=== PATIENT | male | born 1950 | race African-American/Black ===

== ENCOUNTER 2017-05-16 08:48 | Observation (INO) | payer MEDICAID ==
[2017-05-16] MEDS ORDERED: ceFAZolin 2 GM/DEXTROSE 100 ML IV ONE (08:57)
[2017-05-16] MEDS ORDERED: BUPIVACAINE 0.5% 30 ML SDV ONE (09:39)
[2017-05-16] MEDS ORDERED: BACITRACIN 50,000 UNITS/10 ML SYR IRR ONE (09:40)
[2017-05-16] MEDS ORDERED: POLYMYXIN B SULFATE 500,000 UNIT/10 ML SYR IRR ONE (09:40)
[2017-05-16] MEDS ORDERED: LR 1,000 ML IV ONE (10:10)
[2017-05-16 10:38] LABS: HEMATOCRIT 43.2 % (40.0-51.0); HEMOGLOBIN 14.7 g/dL (13.7-17.5)
--- NOTE | 2017-05-16 10:59 | PDANEPAE ---
ANE History of Present Illness VENTRAL hernia for repair ANE Past Medical History - Cardiovascular History Hx Hypertension: No Hx Arrhythmias: No Hx Chest Pain: No Hx Coronary Artery / Peripheral Vascular Disease: No Hx CHF / Valvular Disease: No Hx Palpitations: No - Pulmonary History Hx COPD: No Hx Asthma/Reactive Airway Disease: No Hx Recent Upper Respiratory Infection: No Hx Oxygen in Use at Home: No Hx Sleep Apnea: No Sleep Apnea Screening Result - Last Documented: Negative - Neurologic History Hx Cerebrovascular Accident: No Hx Seizures: No Hx Dementia: No - Endocrine History Hx Diabetes: No Obesity: no - Renal History Hx Renal Disorders: No - Liver History Hx Hepatic Disorders: No - Neurological & Psychiatric Hx Hx Neurological and Psychiatric Disorders: No - Cancer History Hx Cancer: Yes Cancer History Comment: throat cancer 2007, chemotherapy, radiation. 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 - Congenital Disorder History Hx Congenital Disorders: No - GI History GERD: no Hx Gastrointestinal Disorders: No - Chronic Pain History Chronic Pain: No - Surgical History Prior Surgeries: 2009 port for cancer, teeth removed, left pinkie re attached as child, ENT procedure by Dr Minor in office for throat cancer ANE Review of Systems Review of Systems: - Exercise capacity METS (RN): 4 METS ANE Patient History - Allergies Allergies/Adverse Reactions: No Known Allergies Allergy (Verified 05/16/17 10:04) - Home Medications Home medications: home medication list seen and reviewed Home Medications: NK [No Known Home Meds] 05/16/17 [Last Taken Unknown] - NPO status NPO Since - Liquids (Date): 05/15/17 NPO Since - Liquids (Time): 20:00 NPO Since - Solids (Date): 05/15/17 NPO Since - Solids (Time): 20:00 - Anes Hx Hx Anesthesia Complications (with details): 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
[2017-05-16] MEDS ORDERED: MIDAZOLAM 2 MG/2 ML VIAL IVP ONE (11:02)
[2017-05-16 11:46] LABS: CALCIUM 9.3 mg/dL (8.5-10.4); CREATININE 0.9 mg/dL (0.7-1.3); GLOMERULAR FILTRATION RATE > 60; GLUCOSE 92 mg/dL (70-100)
[2017-05-16] MEDS ORDERED: PROPOFOL 200 MG/20 ML VIAL ONE (12:05)
[2017-05-16] MEDS ORDERED: fentaNYL 100 MCG/2 ML INJ ONE ×2 (12:05→13:01)
[2017-05-16] MEDS ORDERED: DEXAMETHASONE 4 MG/ML VIAL ONE (12:07)
[2017-05-16] MEDS ORDERED: ONDANSETRON 4 MG/2 ML VIAL ONE (12:07)
[2017-05-16] MEDS ORDERED: LIDOCAINE 2% 5 ML SDV ONE (12:07)
--- NOTE | 2017-05-16 12:26 | PDHPUP ---
History & Physical Update H&P update statement: This history and physical update is based on an assessment of the patient which was completed after admission or registration (within 24 hours), but prior to the surgery/procedure.
[2017-05-16] MEDS ORDERED: HYDROmorphONE/DILAUDID 1 MG/ML SYR IVP PRN (13:15)
[2017-05-16] MEDS ORDERED: fentaNYL 100 MCG/2 ML INJ IVP PRN (13:15)
[2017-05-16] MEDS ORDERED: OXYCODONE/APAP 5/325 TAB PO PRN ×2 (13:15→14:40)
[2017-05-16] MEDS ORDERED: NALOXONE HCL 0.4 MG/ML INJ IVP PRN (13:15)
[2017-05-16] MEDS ORDERED: ALBUTEROL 3 ML DEYVIAL IH PRN (13:15)
[2017-05-16] MEDS ORDERED: ONDANSETRON 4 MG/2 ML VIAL IVP PRN (13:15)
[2017-05-16] MEDS ORDERED: ACETAMINOPHEN 500 MG TAB PO PRN (13:15)
[2017-05-16 13:47] LABS: ANION GAP 11 mEq/L (8-16); CARBON DIOXIDE 22 mEq/l (22-31); CHLORIDE 106 mEq/L (97-110); POTASSIUM 4.7 mEq/L (3.5-5.2); SODIUM 139 mEq/L (134-144)
--- NOTE | 2017-05-16 13:50 | POSTANESTH ---
Post Anesthetic Evaluation Cardiovascular Status: Normal, Stable Respiratory Status: Normal, Stable Level of Consciousness/Mental Status: Mildly Sleepy, Arousable Pain Control: Adequate, Prn Tx Ordered Nausea/Vomiting Control: Adequate, Prn Tx Ordered Complications Possibly Related to Anesthesia: None Noted
--- NOTE | 2017-05-16 14:44 | POSTOPPROG ---
Post Op Note Date of Operation: 05/16/17 Surgeon: Stevo Levin Snow Fence Erector: none Anesthesiologist: Henry Villatoro Anesthesia: LMA Pre-op Diagnosis: ventral hernia Post-op Diagnosis: same Procedure: gastrostomy closure, hrenia repair x2 primary Findings: 2 separate hernia Inf/Abcess present in the surg proc area at time of surgery?: No Depth: Organ Space EBL: Minimal Specimen(s): none
[2017-05-17 05:46] VITALS: BP 113/73; PULSE 67; RESP 16; TEMP 98.6; O2SAT 93
--- NOTE | 2017-05-17 16:50 | GOP ---
[f rep st] OPERATIVE REPORT DATE OF OPERATION: 05/16/2017 SURGEON: Stevo Levin MD [id number] DEVELOPER: None. ANESTHESIOLOGIST: Dr. Henry Serrano. PREOPERATIVE DIAGNOSIS: Ventral incisional hernia. POSTOPERATIVE DIAGNOSIS: Ventral incisional hernia x2 with 1 being at the level of a previous gastrostomy site. PROCEDURE PERFORMED: Open incisional hernia repair, upper midline, as well as gastrostomy takedown and repair of hernia at that site. FINDINGS: Were those of 2 hernias, 1 at the level of the gastrostomy site, 1 at the level of the actual incision for the gastrostomy tube insertion, both incisional hernias. SPECIMENS: There were no specimens. DESCRIPTION OF PROCEDURE: Patient was brought into the operating room. After induction of general LMA anesthesia in supine position, his abdomen was prepped with chlorhexidine and draped sterilely. A time-out procedure was performed according to institutional standards. Local anesthetic was infused in the skin and subcutaneous tissues above the 2 hernia sites. Open incision was made above the previous gastrostomy site with an elliptical incision including the skin. The skin was then excised and discarded. The actual gastrostomy opening was oversewn with 3-0 PDS suture. Complete dissection of the gastrostomy tube was done and this was put back into the abdomen. Hemostasis was assured. The peritoneum was reapproximated with 2-0 Vicryl and the fascia was reapproximated in an interrupted fashion using 0 PDS suture without tension. There was an area where the previous hernia that was also imbricated to allow approximation of the skin using 4-0 Vicryl. Attention was then addressed to the midline hernia, which was identified by palpation in the upper midline just below the xiphoid. This incision was then made transversely. The hernia was completely encompassed. Part of the incarcerated omentum found there was excised and discarded. The remainder was made hemostatic and returned into the abdominal cavity. 3-0 PDS was used to reapproximate the peritoneum and the fascia was then reapproximated using interrupted [id number] PDS sutures. The space was also imbricated to prevent seroma formation. The skin was reapproximated using 4-0 Vicryl. Dermabond was then applied to both incision. The patient was awakened and LMA removed. He was taken to the recovery room in stable condition. No immediate complications. COMPLICATIONS: There were no complications. /[id number]/MODL MTDD
== END 2017-05-17 08:00 | disposition home or self-care (01) ==
LOC: F3E 08:48 → F1N 15:13
PROVIDERS: ADMIT Surgery; ATTEND Surgery
PROC: 0WQFXZ2 Repair Abdominal Wall, Stoma, External Approach (ICD-10-PCS; principal; 2017-05-16 11:30)
PROC: 0WUF0JZ Supplement Abdominal Wall with Synthetic Substitute, Open Approach (ICD-10-PCS; principal; 2017-05-16 11:30)
DX: K43.2 Incisional hernia without obstruction or gangrene (principal); K43.0 Incisional hernia with obstruction, without gangrene; Z43.1 Encounter for attention to gastrostomy
CPT/HCPCS: 43870; 49560; 49561; 49568; G0378; J0690; J1100; J2250; J2405; J2704; J3010